=== PATIENT | male | born 1975 | race African-American/Black ===

== ENCOUNTER 2018-09-28 17:37 | Inpatient (IN) | payer OTHER, SELFPAY ==
[2018-09-28 18:17] LABS: #Basophils 0.1 thou/uL (0.0-0.2); #Eosinphils 0.1 thou/uL (0.0-0.7); #Lymphocytes 2.3 thou/uL (1.20-3.40); #Monocytes 0.6 thou/uL (0.11-0.59); #Neutrophils 8.5 thou/uL (1.40-6.50); %Basophils 0.5 % (0.0-1.0); %Eosinophils 1.2 % (0.0-10.0); %Lymphocytes 20.1 % (21.0-51.0); %Monocytes 4.8 % (0.0-10.0); %Neutrophils 73.4 % (42.0-75.0); Hemoglobin 16.7 g/dL (14.0-18.0); Mean Corpuscular HGB CONC 33.7 g/dL (32.0-36.0); Mean Corpuscular Hemoglobin 34.3 pg (27.0-31.0); Platelet Count 210 thou/uL (130-400); RBC Distribution Width 11.5 % (11.5-14.5); Red Blood Cell (RBC) Count 4.86 mill/uL (4.70-6.10); White Blood Cell (WBC) Count 11.6 thou/uL (4.8-10.8)
[2018-09-28 18:46] LABS: ALT (SGPT) 27 U/L (8-55); AST (SGOT) 29 U/L (5-34); Albumin 4.3 g/dL (3.5-5.0); Alkaline Phosphatase 150 U/L (40-150); Anion Gap 20 mmol/L (10-20); BUN (Urea Nitrogen) 34 mg/dL (8.9-20.6); Bilirubin, Total 0.4 mg/dL (0.2-1.2); Calc. Creatinine Clearance 0 mL/min (70-130); Calcium 10.1 mg/dL (7.8-10.44); Carbon Dioxide 19 mmol/L (22-29); Chloride 87 mmol/L (98-107); Estimated GFR-MDRD 46; Globulin 3.8 g/dL (2.4-3.5); Glucose 1067 mg/dL (70-105); Potassium 6.9 mmol/L (3.5-5.1); Protein, Total 8.1 g/dL (6.0-8.3); Sodium 119 mmol/L (136-145)
--- NOTE | 2018-09-28 19:03 | PDOC.FPRHP ---
- History of Present Illness Chief Complaint: blurred vision History of Present Illness: 43 yo previously healthy male presents for blurred vision for past 2 weeks, while he normally has 20/20 vision. Reports polydypsia, polyuria and urinary frequency every 30 min to an hour, and fatigue. He checked his blood sugar with is daughter's glucometer and it was >400, today is >1000. His daughter has diabetes unknown type since childhood, and his mother had diabetes and at age 47 from complications, including stroke, heart and kidney failure. He is a current smoker (20 PYs), and drinks 1L beer daily. Denies CP, Sob, nausea/ vomiting, diarrhea/constipation. Reports white tongue with some pain for past 5 days. In ED, VSS. ABG showed pH 7.35. K elevated to 6.9 (partially hemolyzed). EKG wnl. Pt given 1 amp calcium and bicarb, 10 u humulin, 2L NS. - Allergies/Adverse Reactions Allergies Allergy/AdvReac Type Severity Reaction Status Date / Time No Known Allergies Allergy Unverified 09/28/18 20:13 - History PMHx: none PSHx: none FHx: daughter with DM (likely type 2, daughter via text states she thinks its type 2); mother of DM complications at age 47. No fam hx cancer. Social: 20 PY smoking hx, currently smokes 1 PPD. 1 L beer daily. States he used to use illicit drugs >5 years ago. Denies use of IV drugs ever. - Review of Systems General: reports: fatigue. denies: fever/chills, weight/appetite/sleep changes Eyes: reports: vision changes. denies: eye pain ENT: denies: nasal congestion, rhinorrhea Respiratory: denies: cough, congestion, shortness of breath Cardiovascular: denies: chest pain, palpitation, edema Gastrointestinal: reports: GI bleeding (reports hx of red mixed in stool in bowl after drinking red beverage twice in past 3 months: unsure if was blood or the red beverage.). denies: nausea, vomiting, diarrhea, constipation, abdominal pain Genitourinary: reports: polyuria, other (urinary frequency). denies: incontinence, dysuria Skin: reports: lesions (tongue white plaque). denies: rashes Musculoskeletal: denies: pain, tenderness Neurological: denies: numbness, syncope, seizure, weakness Psychological: denies: anxiety, depression - Vital signs BP: 130/87 HR: 87 RR: 18 Tmax: 98 Pox: 94% on RA Wt: 89 kg - Physical Exam Constitutional: NAD, awake, alert and oriented HEENT: normocephalic and atraumatic, PERRLA, EOMI, conjunctiva clear, no scleral icterus, grossly normal hearing, MMM, other (white plaque, unable to scrape off on tongue. small buccal lesions) Neck: supple, trachea midline, no thyromegaly, other (+LAD) Heart: RRR, normal S1/S2, no murmurs/rubs/gallops, pulses present, no edema, other (cap refill >3 seconds) Lungs: CTAB, no respiratory distress, good air movement, no rales/rhonchi, no wheezing Abdomen: soft, non-tender, bowel sounds present, no masses/distention Musculoskeletal: normal structure, normal tone, ROM grossly normal Neurological: no focal deficit, CN II-XII intact Skin: no rash/lesions, other (cap refill >3 seconds) Heme/Lymphatic: no unusual bruising or bleeding, no purpura Psychiatric: normal mood and affect, intact recent and remote memory FMR H&P: Results - Labs Result Diagrams: 09/28/18 18:03 09/28/18 20:37 Lab results: WBC 11.6 thou/uL (4.8-10.8) H 09/28/18 18:03 Hgb 16.7 g/dL (14.0-18.0) 09/28/18 18:03 Hct 49.5 % (42.0-52.0) 09/28/18 18:03 MCV 102.0 fL (78.0-98.0) H 09/28/18 18:03 Plt Count 210 thou/uL (130-400) 09/28/18 18:03 Neutrophils % 73.4 % (42.0-75.0) 09/28/18 18:03 Sodium 119 mmol/L (136-145) L* 09/28/18 18:03 Potassium 6.9 mmol/L (3.5-5.1) H* 09/28/18 18:03 Chloride 87 mmol/L (98-107) L 09/28/18 18:03 Carbon Dioxide 19 mmol/L (22-29) L 09/28/18 18:03 BUN 34 mg/dL (8.9-20.6) H 09/28/18 18:03 Creatinine 1.95 mg/dL (0.7-1.3) H 09/28/18 18:03 Glucose 1067 mg/dL (70-105) H* 09/28/18 18:03 Calcium 10.1 mg/dL (7.8-10.44) 09/28/18 18:03 Total Bilirubin 0.4 mg/dL (0.2-1.2) 09/28/18 18:03 AST 29 U/L (5-34) 09/28/18 18:03 ALT 27 U/L (8-55) 09/28/18 18:03 Alkaline Phosphatase 150 U/L (40-150) 09/28/18 18:03 Serum Total Protein 8.1 g/dL (6.0-8.3) 09/28/18 18:03 Albumin 4.3 g/dL (3.5-5.0) 09/28/18 18:03 - EKG Interpretation EKG: NSR, T waves not peaked FMR H&P: A/P - Problem List (1) HHS (hypothenar hammer syndrome) Current Visit: Yes Status: Acute Code(s): I73.89 - OTHER SPECIFIED PERIPHERAL VASCULAR DISEASES (2) WEI (acute kidney injury) Current Visit: Yes Status: Acute Code(s): N17.9 - ACUTE KIDNEY FAILURE, UNSPECIFIED (3) Hyponatremia Current Visit: Yes Status: Acute Code(s): E87.1 - HYPO-OSMOLALITY AND HYPONATREMIA (4) Thrush, oral Current Visit: Yes Status: Acute Code(s): B37.0 - CANDIDAL STOMATITIS (5) Alcohol abuse Current Visit: Yes Status: Acute Code(s): F10.10 - ALCOHOL ABUSE, UNCOMPLICATED (6) Tobacco abuse Current Visit: Yes Status: Acute Code(s): Z72.0 - TOBACCO USE (7) History of drug use Current Visit: Yes Status: Chronic Code(s): Z87.898 - PERSONAL HISTORY OF OTHER SPECIFIED CONDITIONS - Plan HHS -Glucose >1000, ABG pH 7.35. BHB 1.86. Initial K 6.9. EKG NSR. -Anion gap 13, bicarb 19. -2L NS, amp bicarb and 1 amp calcium, 10 u humulin given in ED -Start insulin drip -NPO with ice chips while on insulin dripo -Continue to monitor electrolytes. Initial K 6.9, continue to monitor as patient likely has potassium depletion and this will decrease with insulin. -Patient may transition out of IMCU once gap closed, glucose <250, and electrolytes normalized; likely in the AM New onset DM -A1C pending WEI -likely 2/2 volume depletion -continue to monitor, will likely improve with fluids Pseudohyponatremia -Na 119, corrected sodium 134. Likely to improve with tighter glucose control and fluids -continue to monitor Oral Thrush -Nystatin SSW Alcohol abuse -ASE scoring -blood alcohol level pending Macrocytosis -Likely 2/2 alcohol abuse -MCV 102, start multivitamin Tobacco abuse -20 PY history. Encouraged cessation. Nicotine patch while in IMCU and patient unable to go outside to smoke -Remove once he leaves IMCU Hx drug abuse -Pt reports illicit substance use in the past, will not say what type. Denies IV drug use. -UDS pending PCP: none Diet: NPO until off insulin drip DVT ppx: lovenox FMR H&P: Upper Level - Pertinent history 43 yr old male with no known PMH presents with blurry vision, elevated blood glucose, and polyuria. He states 2 weeks ago he noticed his vision changed significantly. Then he noticed he was peeing large amounts every hour. He has family with diabetes so they checked his BG last night and it was > 400. He denies chest pain, headaches, SOB, weakness, numbness, tingling. - Pertinent findings General: NAD, alert and oriented x3 HEENT: EOMI, normal sclera, oropharynx without erythema or exudate, thrush on tongue Neck: Supple. Full ROM. Heart/Cardiovascular System: RRR, Cap refill < 3 seconds, no rub, no murmur Lungs/Respiratory System: clear to auscultation bilaterally. No increased work of breathing. Room air. Abdomen/Gastro-Intestinal System: no abdominal tenderness, normal bowel sounds, no masses, no organomegaly Extremities: Warm extremities. No cyanosis or edema. Neuro: No gross deficits appreciated. CN 2-12 grossly intact Psychiatry: Awake, Alert and cooperative with exam Skin: No lesions, rashes, or ulcers Musculoskeletal: Full ROM - Plan Date/Time: 09/28/18 1903 I, [Carolina Marrero], have evaluated this patient and agree with findings/plan as outlined by epidemiology intern resident. Pertinent changes/additions are listed here. 43 yr old male with hyperglycemia Hyperglycemic Hyperosmolar syndrome -normal pH, slight elevated in beta hydroxy butarate, glucose > 1000, anion gap= 13, no metabolic acidosis. -given insulin bolus in ER, will initiate DKA protocol for insulin drip. -check BMP q 2 hours New onset type 2 DM -check A1C -insulin lulu, consider nonaggressive SC insulin when gap closed and BG < 250 ( plan for 10 units lantus) -consider Metformin at that time -establish care at [facility] for further mgmt. of DM -if co-HTN, exists, consider [facility] I Pseudohyponatremia -2/2 hypoerglycemia -corected sodium = 142 Hyperkalemia -monitor with q 2 hour BMPs -has received sodium bicarb and calcium gluconate in ER -no EKG changes -expect to improve with insulin administration WEI vs CKD -monitor on BMPs -aggressive fluid hydration Oral thrush -swish and swallow nystatin Addendum - Attending - Attending Attestation Date/Time: 09/28/18 6510 I personally evaluated the patient and discussed the management with Dr. Mingo Whittaker I agree with the History, Examination, Assessment and Plan documented above with any addition or exceptions noted below- 43 yr old male with no known PMH presents with blurry vision, polydipsia, and polyuria. He states 2 weeks ago he noticed his vision changed significantly. Then he noticed he was urinating large amounts every hour. He has family with diabetes so they checked his BG last night and it was > 400. He denies chest pain, headaches, SOB, weakness, numbness, tingling. No recent febrile illnesses. Denies cough, URI symptoms, N/ V. PMH/PSH/Meds/SH reviewed and agree with resident's documentation. Afebrile VSS. Exam repeated by me and agree with resident's findings. Labs: Om=729 shqyvzymo=184, K=6.9 (hemolyzed); CL=87, CO2=19, BUN/Cr=34/1.95, Utqm=5402, AST/ ALT= 29/27, WBC= 11.6, H/H=16.7/49.5, Vfy=217. ABG= 7.36/36/70/20 93% A/P: 1) HHS- Admit to IMCU- start fluids and insulin drip. Monitor BG amd electrolytes. 2) Newly diagnosed DM= diabetic education for glucometer use, medications. Case managment consult to assist with equipment 3) Hyperkalemia- specimen hemolyzed; will recheck; received calcium in ER
[2018-09-28] MEDS ORDERED: Calcium Chloride 1 GM/10 ML Abboject SYRINGE ONE ×2 (19:04→19:06)
[2018-09-28] MEDS ORDERED: Insulin Regular 300 UNITS/3 ML VIAL ONE (19:04)
[2018-09-28] MEDS ORDERED: Sodium Bicarb 50 MEQ/50 ML Abboject 8.4% SYRINGE ONE (19:04)
[2018-09-28 19:13] LABS: Analyzer IN Cardio ER; Base Excess (BEa) -4.7 mEq/L (-2.0 to +3.0); CO2 Tension 36.5 mmHg (35.0-45.0); Calcium, Ionized 1.24 mmol/L (1.12-1.30); Carboxyhemoglobin (COHb) 1.4 gm% (0.0-3.0); Hemoglobin (Hb) 17.3 g/dL (14.0-18.0); O2 Tension (PaO2) 70.7 mmHg (80.0-100.0); Potassium - ABG Lab 5.32 mmol/L (3.70-5.30); pH, Arterial 7.36 (7.35-7.45)
[2018-09-28 19:49] LABS: ALV-art Gradient 33.405 (0-20); Puncture Site RRA
[2018-09-28] MEDS ORDERED: Acetaminophen 650 MG Suppository PR PRN (20:42)
[2018-09-28] MEDS ORDERED: Dextrose 5 %-0.45 % NaCl 1,000 ML IV PRN (20:42)
[2018-09-28] MEDS ORDERED: Sodium Chloride 0.9% 1,000 ML IV PRN ×4 (20:42)
[2018-09-28] MEDS ORDERED: CCU Electrolyte Replacement 1 EACH IVPB SCH (20:42)
[2018-09-28] MEDS ORDERED: Ondansetron ODT 4 MG TAB PO PRN (20:42)
[2018-09-28] MEDS ORDERED: Acetaminophen 325 MG TAB PO PRN (20:42)
[2018-09-28] MEDS ORDERED: Ondansetron PF 4 MG/2 ML Vial IVP PRN (20:42)
[2018-09-28] MEDS ORDERED: NS 0.9% w/ 20 MEQ KCL 1,000 ML IV PRN (20:42)
[2018-09-28 20:44] VITALS: BMI 27.4
[2018-09-28] MEDS ORDERED: Magnesium 2 GM/50 ML 2 GM in Premix Bag 1 BAG IVPB PRN (20:59)
[2018-09-28] MEDS ORDERED: Potassium Chloride 20 MEQ TAB PO PRN (20:59)
[2018-09-28] MEDS ORDERED: Potassium Phosphate 9 MMOL in Sodium Chloride 0.9% 100 ML IVPB PRN (20:59)
[2018-09-28] MEDS ORDERED: PHOS-NAK 1 PKT PACK PO PRN ×2 (20:59)
[2018-09-28] MEDS ORDERED: Potassium Phosphate 12 MMOL in Sodium Chloride 0.9% 250 ML 250 ML IV PRN (20:59)
[2018-09-28] MEDS ORDERED: Potassium Chloride 40 MEQ in Sodium Chloride 0.9% 250 ML 250 ML IVPB PRN (20:59)
[2018-09-28] MEDS ORDERED: CCU ELECTROLYTE REPLACEMENT PROTOCOL FS PRN (20:59)
[2018-09-28] MEDS ORDERED: Magnesium Oxide 400 MG TAB PO PRN ×2 (20:59)
[2018-09-28] MEDS ORDERED: Potassium Chloride 40 MEQ in Premix Bag 1 BAG IVPB PRN (20:59)
[2018-09-28] MEDS ORDERED: Potassium Phosphate 15 MMOL in Sodium Chloride 0.9% 250 ML 250 ML IV PRN (20:59)
[2018-09-28] MEDS ORDERED: Enoxaparin Sodium 40 MG/0.4 ML SYRINGE SC SCH (21:00)
[2018-09-28] MEDS ORDERED: HUMULIN R 100 UNITS in Sodium Chloride 0.9% 100 ML IVPB SCH (21:00)
[2018-09-28 21:03] LABS: Anion Gap 17 mmol/L (10-20); BUN (Urea Nitrogen) 30 mg/dL (8.9-20.6); Calc. Creatinine Clearance 76 mL/min (70-130); Calcium 10.9 mg/dL (7.8-10.44); Carbon Dioxide 22 mmol/L (22-29); Chloride 99 mmol/L (98-107); Estimated GFR-MDRD 66; Potassium 4.3 mmol/L (3.5-5.1); Sodium 134 mmol/L (136-145)
[2018-09-28 21:08] LABS: Glucose 616 mg/dL (70-105)
[2018-09-28 21:37] LABS: Hemoglobin A1c 13.4 % (4.0-6.0)
[2018-09-28] MEDS: NS 0.9% w/ 20 MEQ KCL 1,000 ML IV PRN ×2 (21:55→23:49)
[2018-09-28] MEDS: Nystatin 500,000 UNITS/5 ML UDCUP SSW SCH (22:15)
[2018-09-28] MEDS: Nicotine 21 MG PATCH TD SCH (22:17)
[2018-09-28 23:05] LABS: Amphetamine Not Detected (NotDetected); Barbiturates Screen Not Detected (NotDetected); Benzodiazepine Screen Not Detected (NotDetected); Cocaine Metabolite Screen Not Detected (NotDetected); Medtox Control Line Valid? VALID (VALID); Medtox Reader # READER 1; Methadone Not Detected (NotDetected); Methamphetamine Not Detected (NotDetected); Opiate Screen Not Detected (NotDetected); Oxycodone Screen Not Detected (NotDetected); Phencyclidine (PCP) Not Detected (NotDetected); THC/Cannabinoid Screen Not Detected (NotDetected); Tricyclic Screen Not Detected (NotDetected)
[2018-09-29] MEDS: D5 1/2 NS w/20 mEq KCL 1,000 ML IV PRN ×2 (02:00→06:05)
[2018-09-29 02:28] LABS: BUN (Urea Nitrogen) 21 mg/dL (8.9-20.6); Calc. Creatinine Clearance 108 mL/min (70-130); Calcium 9.7 mg/dL (7.8-10.44); Chloride 107 mmol/L (98-107); Estimated GFR-MDRD Greater than 90; Glucose 254 mg/dL (70-105); Potassium 4.2 mmol/L (3.5-5.1); Sodium 139 mmol/L (136-145)
[2018-09-29 03:18] LABS: Anion Gap 13 mmol/L (10-20); Carbon Dioxide 22 mmol/L (22-29)
[2018-09-29 04:56] LABS: #Basophils 0.1 thou/uL (0.0-0.2); #Eosinphils 0.2 thou/uL (0.0-0.7); #Lymphocytes 3.3 thou/uL (1.20-3.40); #Monocytes 0.4 thou/uL (0.11-0.59); #Neutrophils 4.3 thou/uL (1.40-6.50); %Basophils 1.2 % (0.0-1.0); %Eosinophils 2.5 % (0.0-10.0); %Lymphocytes 39.7 % (21.0-51.0); %Monocytes 5.1 % (0.0-10.0); %Neutrophils 51.5 % (42.0-75.0); Hemoglobin 14.7 g/dL (14.0-18.0); Mean Corpuscular HGB CONC 34.6 g/dL (32.0-36.0); Mean Corpuscular Hemoglobin 34.4 pg (27.0-31.0); Mean Corpuscular Volume 99.5 fL (78.0-98.0); Mean Platelet Volume 8.4 fL (7.4-10.4); Platelet Count 198 thou/uL (130-400); RBC Distribution Width 11.2 % (11.5-14.5); Red Blood Cell (RBC) Count 4.28 mill/uL (4.70-6.10); White Blood Cell (WBC) Count 8.4 thou/uL (4.8-10.8)
[2018-09-29 05:24] LABS: Anion Gap 8 mmol/L (10-20); BUN (Urea Nitrogen) 17 mg/dL (8.9-20.6); Calc. Creatinine Clearance 118 mL/min (70-130); Calcium 8.9 mg/dL (7.8-10.44); Carbon Dioxide 24 mmol/L (22-29); Chloride 109 mmol/L (98-107); Estimated GFR-MDRD Greater than 90; Glucose 243 mg/dL (70-105); Potassium 3.9 mmol/L (3.5-5.1); Sodium 137 mmol/L (136-145)
[2018-09-29] MEDS ORDERED: Insulin Glargine 10 UNITS in Pre-Filled Syringe 1 EACH SC SCH (08:00)
--- NOTE | 2018-09-29 08:27 | PDOC.FM ---
- Subjective Subjective: Pt reports feeling generally well with no complaints, reports continued but improved blurry vision. No other concerns at this time. - Objective Vital Signs & Weight: Vital Signs (12 hours) Temp Pulse Resp BP Pulse Ox 09/29/18 07:04 97.4 F L 09/29/18 05:44 97.7 F 09/29/18 00:31 98.1 F 09/29/18 00:00 96 09/28/18 20:45 97.8 F 67 16 117/85 95 Weight Weight 79.5 kg Most Recent Monitor Data Heart Rate from ECG 74 NIBP 128/88 NIBP BP-Mean 101 Respiration from ECG 19 SpO2 94 I&O: 09/28/18 09/29/18 09/30/18 06:59 06:59 06:59 Intake Total 5500 Output Total 1200 Balance 4300 Result Diagrams: 09/29/18 04:12 09/29/18 04:12 Phys Exam - Physical Examination Constitutional: NAD HEENT: sclera anicteric moderately dry MMs Neck: supple, full ROM Respiratory: no wheezing, clear to auscultation bilateral Cardiovascular: RRR, no significant murmur Gastrointestinal: soft, non-tender Musculoskeletal: no edema, pulses present Neurological: normal sensation, moves all 4 limbs Psychiatric: normal affect, A&O x 3 Skin: no rash, normal turgor Dx/Plan (1) WEI (acute kidney injury) Code(s): N17.9 - ACUTE KIDNEY FAILURE, UNSPECIFIED Status: Acute (2) Alcohol abuse Code(s): F10.10 - ALCOHOL ABUSE, UNCOMPLICATED Status: Acute (3) HHS (hypothenar hammer syndrome) Code(s): I73.89 - OTHER SPECIFIED PERIPHERAL VASCULAR DISEASES Status: Acute (4) Hyponatremia Code(s): E87.1 - HYPO-OSMOLALITY AND HYPONATREMIA Status: Acute (5) Thrush, oral Code(s): B37.0 - CANDIDAL STOMATITIS Status: Acute (6) Tobacco abuse Code(s): Z72.0 - TOBACCO USE Status: Acute (7) History of drug use Code(s): Z87.898 - PERSONAL HISTORY OF OTHER SPECIFIED CONDITIONS Status: Chronic - Plan Plan: [facility] A- Glucose >1000 on presentation, improved greatly, Gap now closed, electrolytes now normalized. s/p 2L NS, amp bicarb and 1 amp calcium, 10 u humulin given in ED, and insulin drip on floor P- lantus 10u this AM -will likely DC drip this AM and transition to floor -will switch to new home insulin and PO med regimen on floor New onset DM A- A1C 13.4 P- plan per above WEI A- resolved, likely 2/2 volume depletion P- continue to monitor Pseudohyponatremia -Resolved Oral Thrush -Nystatin SSW Alcohol abuse -ASE scoring Macrocytosis -Likely 2/2 alcohol abuse, MCV 102, start multivitamin Tobacco abuse -Encourage cessation Hx drug abuse -MD aware PCP: none Diet: NPO until off insulin drip DVT ppx: lovenox Addendum - Attending - Attending Attestation Date/Time: 09/29/18 3300 I personally evaluated the patient and discussed the management with Dr. Ocampo. I agree with the History, Examination, Assessment and Plan documented above with any addition or exceptions noted below. The patient notes that he is feeling better. There is concern for q-waves on ekg. Will discuss with cardiology has pt has tobacco history and family history of cardiac disease. Pt was initially given lantus and insulin drip is being stopped. Pt doesn't have insurance and therefore we will transition to 70 /30 insulin which is less expensive and titrate to effective dose. Will consult dietary for diabetic counseling.
[2018-09-29] MEDS ORDERED: Sodium Chloride 0.9% 1,000 ML IV SCH (09:00)
[2018-09-29] MEDS: Multivitamin W/ Minerals 1 TAB PO SCH (09:28)
[2018-09-29] MEDS: Nystatin 500,000 UNITS/5 ML UDCUP SSW SCH ×4 (09:28→20:58)
[2018-09-29] MEDS: Enoxaparin Sodium 40 MG/0.4 ML SYRINGE SC SCH (09:28)
[2018-09-29] MEDS ORDERED: Dextrose 50% Abboject 50 ML SYRINGE SLOW IVP PRN (10:59)
[2018-09-29] MEDS ORDERED: Dextrose 5% in Water 1,000 ML IV PRN (10:59)
--- NOTE | 2018-09-29 14:36 | CON ---
DATE OF CONSULTATION: HISTORY OF PRESENT ILLNESS: The patient is a 43-year-old gentleman who presented with decreasing vision and frequent urination. The patient has no previous medical history. The patient states a few weeks ago he started noticing having difficulty with his vision. Following this, he developed polyuria. The patient presented to the emergency room for evaluation. The patient denies having any chest discomfort. The patient denies having any dyspnea, PND, or orthopnea. The patient has several cardiac risk factors including tobacco abuse and a family history of coronary artery disease. PAST MEDICAL HISTORY: None. PAST SURGICAL HISTORY: None. MEDICATIONS: None. FAMILY HISTORY: Positive for family history of coronary artery disease. SOCIAL HISTORY: He smokes one pack per day. ALLERGIES: NO KNOWN DRUG ALLERGIES. REVIEW OF SYSTEMS: Ten-point system unremarkable. PHYSICAL EXAMINATION: GENERAL: Thin gentleman, in no acute distress. VITAL SIGNS: Blood pressure 124/79. NECK: No jugular venous distention. LUNGS: Clear to auscultation. HEART: Regular rate and rhythm. Normal S1 and S2. No murmurs. ABDOMEN: Nondistended. EXTREMITIES: No edema. VASCULAR: Radial pulses are 2+. LABORATORY DATA: Sodium 137, potassium 3.9, chloride 109, bicarbonate 24, BUN 8 , creatinine 0.93, and glucose 243. His white blood cell count is 8.4, hemoglobin 14.7, hematocrit 42.5, and platelets are 198. EKG revealed normal sinus rhythm with diffuse ST elevation, suggestive of early repolarization. IMPRESSION: 1. Hyperglycemia. 2. Diabetes mellitus. 3. Tobacco abuse. This gentleman presents with severe hyperglycemia. He has a newly diagnosed diabetes mellitus. The patient is being started on medication. From a cardiac standpoint, his EKG shows evidence of early repolarization. The life- threatening consequences of the patient continued to use tobacco had been explained to the patient. The patient should be treated with low-dose aspirin for his cardioprotective effect in this high-risk patient. Also would recommend the patient be on moderate dose of lipid-lowering medication per recommendations of [facility]. We will follow this patient with you through his hospitalization. PLAN: 1. Aspirin 81 mg daily. 2. Lipitor 40 mg p.o. nightly. Job ID: [id number] [facility]
[2018-09-29] MEDS: Sodium Chloride 0.9% 1,000 ML IV SCH ×2 (14:40→20:52)
[2018-09-29] MEDS ORDERED: metFORMIN 500 MG TAB PO SCH (17:00)
[2018-09-29] MEDS: HumaLOG 300 UNITS/3 ML VIAL SC PRN (17:34)
[2018-09-29] MEDS: Nicotine 21 MG PATCH TD SCH (20:55)
[2018-09-29] MEDS: Atorvastatin Calcium 40 MG TAB PO SCH (20:58)
[2018-09-29] MEDS ORDERED: HumuLIN 70/30 (300 UNITS/3 ML VIAL) SC SCH (21:00)
[2018-09-29] MEDS ORDERED: Atorvastatin Calcium 40 MG TAB PO SCH (21:00)
[2018-09-30] MEDS: Sodium Chloride 0.9% 1,000 ML IV SCH (04:10)
[2018-09-30] MEDS: HumaLOG 300 UNITS/3 ML VIAL SC PRN ×4 (04:10→21:05)
[2018-09-30 05:02] LABS: Anion Gap 9 mmol/L (10-20); BUN (Urea Nitrogen) 10 mg/dL (8.9-20.6); Calc. Creatinine Clearance 110 mL/min (70-130); Calcium 8.2 mg/dL (7.8-10.44); Carbon Dioxide 24 mmol/L (22-29); Chloride 108 mmol/L (98-107); Estimated GFR-MDRD Greater than 90; Glucose 243 mg/dL (70-105); Potassium 3.6 mmol/L (3.5-5.1); Sodium 137 mmol/L (136-145)
[2018-09-30 05:17] LABS: #Basophils 0.1 thou/uL (0.0-0.2); #Eosinphils 0.3 thou/uL (0.0-0.7); #Monocytes 0.5 thou/uL (0.11-0.59); %Basophils 0.8 % (0.0-1.0); %Eosinophils 2.6 % (0.0-10.0); %Monocytes 5.5 % (0.0-10.0); %Neutrophils 61.1 % (42.0-75.0); Hemoglobin 13.8 g/dL (14.0-18.0); Mean Corpuscular HGB CONC 34.4 g/dL (32.0-36.0); Mean Corpuscular Hemoglobin 34.2 pg (27.0-31.0); Mean Corpuscular Volume 99.5 fL (78.0-98.0); Mean Platelet Volume 7.8 fL (7.4-10.4); Platelet Count 195 thou/uL (130-400); RBC Distribution Width 11.1 % (11.5-14.5); RBC Morphology Normal; Red Blood Cell (RBC) Count 4.04 mill/uL (4.70-6.10); White Blood Cell (WBC) Count 9.9 thou/uL (4.8-10.8)
[2018-09-30] MEDS ORDERED: HumuLIN 70/30 (300 UNITS/3 ML VIAL) SC SCH (07:00)
[2018-09-30 07:28] VITALS: BP 105/64
[2018-09-30] MEDS: metFORMIN 500 MG TAB PO SCH (08:43)
--- NOTE | 2018-09-30 08:45 | PDOC.FM ---
- Subjective Subjective: Pt feels well with no complaints, no concerns at this time. no fever/chills, no cp no sob - Objective Vital Signs & Weight: Vital Signs (12 hours) Temp Pulse Resp BP Pulse Ox 09/30/18 07:27 78 16 105/64 98 09/30/18 07:24 97.2 F L 09/30/18 04:00 83 16 95 09/30/18 03:11 98.2 F 09/30/18 00:00 90 16 95 09/29/18 23:09 97.6 F Weight Admit Weight 79.5 kg Weight 79.5 kg Most Recent Monitor Data Heart Rate from ECG 72 NIBP 107/68 NIBP BP-Mean 81 Respiration from ECG 18 SpO2 96 I&O: 09/29/18 09/30/18 10/01/18 06:59 06:59 06:59 Intake Total 5500 5600 Output Total 1200 2000 Balance 4300 3600 Result Diagrams: 09/30/18 04:22 09/30/18 04:22 Phys Exam - Physical Examination Constitutional: NAD HEENT: moist MMs, sclera anicteric Neck: supple, full ROM Respiratory: no wheezing, no rales, clear to auscultation bilateral Cardiovascular: RRR, no significant murmur Gastrointestinal: soft, non-tender Musculoskeletal: pulses present Neurological: normal sensation, moves all 4 limbs Psychiatric: normal affect, A&O x 3 Skin: no rash, normal turgor Dx/Plan (1) EWI (acute kidney injury) Code(s): N17.9 - ACUTE KIDNEY FAILURE, UNSPECIFIED Status: Acute (2) Alcohol abuse Code(s): F10.10 - ALCOHOL ABUSE, UNCOMPLICATED Status: Acute (3) HHS (hypothenar hammer syndrome) Code(s): I73.89 - OTHER SPECIFIED PERIPHERAL VASCULAR DISEASES Status: Acute (4) Hyponatremia Code(s): E87.1 - HYPO-OSMOLALITY AND HYPONATREMIA Status: Acute (5) Thrush, oral Code(s): B37.0 - CANDIDAL STOMATITIS Status: Acute (6) Tobacco abuse Code(s): Z72.0 - TOBACCO USE Status: Acute (7) History of drug use Code(s): Z87.898 - PERSONAL HISTORY OF OTHER SPECIFIED CONDITIONS Status: Chronic - Plan Plan: HHS A- Glucose >1000 on presentation, improved greatly, Gap now closed, electrolytes now normalized. s/p 2L NS, amp bicarb and 1 amp calcium, 10 u humulin given in ED, and insulin drip on floor P- continue 70/30 (increase to 40u BID) -continue metformin -await transfer to medical, likely DC today New onset DM A- A1C 13.4 P- plan per above WEI A- resolved, likely 2/2 volume depletion P- continue to monitor Pseudohyponatremia -Resolved Oral Thrush -Nystatin SSW Alcohol abuse -ASE scoring Macrocytosis -Likely 2/2 alcohol abuse, MCV 102, start multivitamin Tobacco abuse -Encourage cessation Hx drug abuse -MD aware PCP: none Diet: NPO until off insulin drip DVT ppx: lovenox Addendum - Attending - Attending Attestation Date/Time: 09/30/18 1036 I personally evaluated the patient and discussed the management with Dr. Ocampo. I agree with the History, Examination, Assessment and Plan documented above with any addition or exceptions noted below. The patient's insulin is being adjusted. Will get nursing to teach him to check his sugars and administer his insulin.
[2018-09-30] MEDS: Nystatin 500,000 UNITS/5 ML UDCUP SSW SCH ×4 (09:17→21:02)
[2018-09-30] MEDS: Enoxaparin Sodium 40 MG/0.4 ML SYRINGE SC SCH (09:18)
[2018-09-30] MEDS: Multivitamin W/ Minerals 1 TAB PO SCH (09:19)
[2018-09-30] MEDS: Aspirin 81 mg Enteric Coated Tablet PO SCH (09:19)
[2018-09-30] MEDS: HumuLIN 70/30 (300 UNITS/3 ML VIAL) SC SCH ×2 (09:52→21:03)
[2018-09-30] MEDS: Atorvastatin Calcium 40 MG TAB PO SCH (21:02)
[2018-09-30] MEDS: Nicotine 21 MG PATCH TD SCH (21:04)
[2018-10-01 04:53] LABS: #Basophils 0.1 thou/uL (0.0-0.2); #Eosinphils 0.3 thou/uL (0.0-0.7); #Lymphocytes 3.4 thou/uL (1.20-3.40); #Monocytes 0.9 thou/uL (0.11-0.59); %Basophils 1.1 % (0.0-1.0); %Eosinophils 2.8 % (0.0-10.0); %Lymphocytes 31.9 % (21.0-51.0); %Monocytes 8.4 % (0.0-10.0); %Neutrophils 55.9 % (42.0-75.0); Hemoglobin 13.4 g/dL (14.0-18.0); Mean Corpuscular HGB CONC 33.2 g/dL (32.0-36.0); Mean Corpuscular Hemoglobin 32.9 pg (27.0-31.0); Mean Corpuscular Volume 99.2 fL (78.0-98.0); Mean Platelet Volume 7.9 fL (7.4-10.4); Platelet Count 203 thou/uL (130-400); Red Blood Cell (RBC) Count 4.08 mill/uL (4.70-6.10); White Blood Cell (WBC) Count 10.7 thou/uL (4.8-10.8)
[2018-10-01 05:14] LABS: Anion Gap 12 mmol/L (10-20); BUN (Urea Nitrogen) 12 mg/dL (8.9-20.6); Calc. Creatinine Clearance 133 mL/min (70-130); Calcium 8.5 mg/dL (7.8-10.44); Carbon Dioxide 19 mmol/L (22-29); Chloride 108 mmol/L (98-107); Estimated GFR-MDRD Greater than 90; Glucose 100 mg/dL (70-105); Potassium 3.6 mmol/L (3.5-5.1); Sodium 135 mmol/L (136-145)
[2018-10-01] MEDS: Nystatin 500,000 UNITS/5 ML UDCUP SSW SCH (08:57)
--- NOTE | 2018-10-01 08:57 | PDOC.FM ---
- Subjective Subjective: Pt feelign well, reports he learned to check BG and use insulin, he has also watched a lot of youtube videos on diabetic diet. - Objective Vital Signs & Weight: Vital Signs (12 hours) Temp 10/01/18 07:06 97.9 F Weight Admit Weight 79.5 kg Weight 79.5 kg Most Recent Monitor Data Heart Rate from ECG 72 NIBP 110/71 NIBP BP-Mean 84 Respiration from ECG 18 SpO2 96 I&O: 09/30/18 10/01/18 10/02/18 06:59 06:59 06:59 Intake Total 5600 1360 Output Total 1999 Balance 3600 1360 Result Diagrams: 10/01/18 04:16 10/01/18 04:16 Phys Exam - Physical Examination Constitutional: NAD HEENT: moist MMs, sclera anicteric Neck: supple, full ROM Respiratory: no wheezing, clear to auscultation bilateral Cardiovascular: RRR, no significant murmur Gastrointestinal: soft, non-tender Musculoskeletal: pulses present Neurological: normal sensation, moves all 4 limbs Psychiatric: normal affect Skin: no rash, normal turgor Dx/Plan (1) WEI (acute kidney injury) Code(s): N17.9 - ACUTE KIDNEY FAILURE, UNSPECIFIED Status: Acute (2) Alcohol abuse Code(s): F10.10 - ALCOHOL ABUSE, UNCOMPLICATED Status: Acute (3) HHS (hypothenar hammer syndrome) Code(s): I73.89 - OTHER SPECIFIED PERIPHERAL VASCULAR DISEASES Status: Acute (4) Hyponatremia Code(s): E87.1 - HYPO-OSMOLALITY AND HYPONATREMIA Status: Acute (5) Thrush, oral Code(s): B37.0 - CANDIDAL STOMATITIS Status: Acute (6) Tobacco abuse Code(s): Z72.0 - TOBACCO USE Status: Acute (7) History of drug use Code(s): Z87.898 - PERSONAL HISTORY OF OTHER SPECIFIED CONDITIONS Status: Chronic - Plan Plan: HHS A- Resolved. Glucose >1000 on presentation, improved greatly, Gap now closed, electrolytes now normalized. s/p 2L NS, amp bicarb and 1 amp calcium, 10 u humulin given in ED, and insulin drip on floor P- continue 70/30 -continue metformin -DC today, pt to f/u in [facility] or [id number], states he is making appointment New onset DM A- A1C 13.4 P- plan per above WEI A- resolved, likely 2/2 volume depletion P- continue to monitor Pseudohyponatremia -Resolved Oral Thrush -Nystatin SSW Alcohol abuse -ASE scoring Macrocytosis -Likely 2/2 alcohol abuse, MCV 102, start multivitamin Tobacco abuse -Encourage cessation Hx drug abuse -MD aware PCP: none DVT ppx: lovenox Addendum - Attending - Attending Attestation Date/Time: 10/01/18 1131 I personally evaluated the patient and discussed the management with Dr. Ocampo. I agree with the History, Examination, Assessment and Plan documented above with any addition or exceptions noted below. The patient is doing well. He has had diabetic teaching. Case mgmt has helped with medications. Will d/c home.
[2018-10-01] MEDS: Enoxaparin Sodium 40 MG/0.4 ML SYRINGE SC SCH (08:58)
[2018-10-01] MEDS: Aspirin 81 mg Enteric Coated Tablet PO SCH (08:59)
[2018-10-01] MEDS: Multivitamin W/ Minerals 1 TAB PO SCH (08:59)
[2018-10-01] MEDS: metFORMIN 500 MG TAB PO SCH (09:00)
[2018-10-01] MEDS: HumuLIN 70/30 (300 UNITS/3 ML VIAL) SC SCH (09:01)
[2018-10-01 10:34] VITALS: TEMP 98.2
--- NOTE | 2018-10-02 03:10 | DIS ---
DATE OF ADMISSION: 09/28/2018 DATE OF DISCHARGE: 10/01/2018 RESIDENT: Ferdy Ocampo MD DISCHARGE ATTENDING: Yessy Granados MD CONSULTS: None. PROCEDURES: None. DISCHARGE MEDICATIONS: 1. Aspirin 81 mg p.o. daily. 2. Atorvastatin 20 mg p.o. at bedtime. 3. Insulin Novolin 70/30, 40 units subcutaneous b.i.d. 4. Metformin 1000 mg p.o. b.i.d. with meals. DISCONTINUED MEDICATIONS: None. PRIMARY DIAGNOSIS: HHS. SECONDARY DIAGNOSES: Newly diagnosed type 2 diabetes, acute kidney injury, oral thrush, alcohol misuse, macrocytosis, tobacco use, history of drug use. HISTORY OF PRESENT ILLNESS/HOSPITAL COURSE: This is a 43-year-old male, who presented to hospital with HHS and was admitted for treatment. The patient was put on insulin drip and showed quick recovery time the morning after admission. The patient was weaned off insulin drip and started on long-acting insulin with sliding scale insulin as well. The patient was eventually stabilized and had normalized blood sugars with insulin 70/30 of 40 units b.i.d. and oral metformin, and was discharged home. Otherwise, hospital course was complicated for electrolyte abnormalities on admission, which were eventually corrected with insulin as well as elevated creatinine on admission, which improved quickly with IV fluids. The patient was also found to have oral thrush by which he was treated with nystatin swish and swallow. DISPOSITION: Stable. DISCHARGE INSTRUCTIONS: 1. Location: Home. 2. Diet: Diabetic diet. 3. Followup: Follow up with Fredy Ocampo in 1 week. 4. Activity: As tolerated. Job ID: [id number]
== END 2018-10-01 13:02 | disposition home or self-care (01) | DRG 638 ==
LOC: ERS 17:37 → IMCU/EMU 19:01
PROVIDERS: ADMIT Family Medicine; ATTEND Family Medicine
DX: E11.00 Type 2 diabetes mellitus with hyperosmolarity without nonketotic hyperglycemic-hyperosmolar coma (NKHHC) (principal); N17.9 Acute kidney failure, unspecified; E87.1 Hypo-osmolality and hyponatremia; B37.0 Candidal stomatitis; F17.210 Nicotine dependence, cigarettes, uncomplicated; F10.10 Alcohol abuse, uncomplicated; E87.5 Hyperkalemia
CPT/HCPCS: 36415; 36416; 80048; 80053; 80306; 80307; 82010; 82805; 83036; 85025; 93005; 96361; 96374; 96375; J1650; J1815; J1825; J3480; J3490